=== PATIENT | male | born 1925 | race Caucasian/White ===

== ENCOUNTER 2017-03-25 15:38 | Emergency (ER) | payer OTHER ==
[~2017-03-25] VITALS: Ht 177.8 cm; Wt 107.7 kg
[~2017-03-25 15:38] MED LIST: ALIGN PO; CMD5 PO; FINA5TAB PO; FLM4 PO; FLNIN NAE; FRS/40 PO; LCTX PO; LEVO1TAB35 PO; LISI-461 PO; MRLP17 PO; POTA-335 PO; SENN-61 PO; SIMV10TA2 PO
[2017-03-25 15:50] VITALS: TEMP 36.6; Ht 177.8 cm; Wt 107.7 kg
[2017-03-25 16:43] VITALS: O2SAT 100
[2017-03-25 16:51] LABS: BASO % 0.3 %; BASO ABS # 0.02 K/uL (0-0.2); COMPLETE YES; EOS % 1.2 %; IG% 0.2 %; LYMPH % 10.4 %; LYMPH ABS # 0.69 K/uL (1.2-3.4); MEAN CORPUSCULAR HEMOGLOBIN 29.4 pg (25-34); MEAN PLATELET VOLUME 9.9 fL (7.4-10.4); MONO % 10.7 %; NEUT % 77.2 %; PLATELET COUNT 181 K/uL (130-400); RED BLOOD COUNT 3.37 M/uL (4.7-6.1); WHITE BLOOD COUNT 6.65 K/uL (4.8-10.8)
[2017-03-25 17:00] LABS: PARTIAL THROMBOPLASTIN RATIO 0.9; PROTHROMBIN TIME (PATIENT) 10.6 SECONDS (9.0-12.0)
[2017-03-25 17:05] LABS: MANUAL MICROSCOPIC REQUIRED? YES; REVIEW REQ? NO; SULFASALICYLIC ACID POS (NEG); URINE APPEARANCE TURBID (CLEAR); URINE COLOR RED
[2017-03-25 17:07] LABS: URINE BACTERIA 1+ (NEG); URINE RBC >30 /hpf (0-4)
[2017-03-25 17:10] LABS: ALT/SGPT 9 U/L (12-78); AST/SGOT 16 U/L (15-37); BLOOD UREA NITROGEN 35 mg/dl (7-18); BUN/CREATININE RATIO 23.3 (10-20); CALCIUM 8.6 mg/dl (8.5-10.1); CARBON DIOXIDE 26 mmol/L (21-32); CHLORIDE 107 mmol/L (98-107); GLUCOSE 88 mg/dl (70-99); POTASSIUM 4.7 mmol/L (3.5-5.1); SODIUM 140 mmol/L (136-145)
[2017-03-25 17:13] LABS: ALKALINE PHOSPHATASE 55 U/L (45-117)
[2017-03-25] MEDS ORDERED: ALEN70TA3 PO (17:31)
--- NOTE | 2017-03-25 17:38 | DIAGNOSTIC IMAGING REPORT ---
CT SCAN OF THE ABDOMEN AND PELVIS WITHOUT IV CONTRAST CLINICAL HISTORY: Hematuria. COMPARISON STUDY: No priors. TECHNIQUE: CT scan of the abdomen and pelvis is performed from the lung bases to the proximal femora. Images are reviewed in the axial, sagittal, and coronal planes. IV contrast was not administered for this examination as per the referring clinician. The examination is degraded by motion artifact, and by streak artifact from the patient's arms which could not be elevated above the abdomen. Automated dose control exposure was utilized. CT DOSE: 1527.46 mGy.cm FINDINGS: Lung bases: The heart is enlarged and without pericardial effusion. There are trace pleural effusions. Letter atelectasis versus scarring is present at both lung bases. No airspace consolidation is identified typical for pneumonia. Gynecomastia is noted. There is a tiny hiatal hernia. Liver: The unenhanced liver is normal in size, contour, and attenuation. There is no intrahepatic biliary ductal dilatation. Gallbladder: There are numerous calcified gallstones. There is no CT evidence of acute cholecystitis. Spleen: Normal in size and attenuation. Pancreas: There is moderate atrophy of the unenhanced pancreas which is grossly unremarkable. Adrenal glands: Unremarkable. Kidneys: The unenhanced kidneys are atrophic. There are no renal calculi identified. There there is a large mass lesion arising from the lower pole of the right kidney seen on axial image #120. This is difficult to discretely measure but extends at least 6 cm in maximum dimension and may be larger. This may invade the right renal pelvis. Foci of fat necrosis are suggested inferior to the right lower pole with peripheral calcifications. Abdominal vasculature: There is advanced atherosclerotic calcification of the abdominal aorta. An infrarenal abdominal aortic aneurysm measures 4.7 cm in AP diameter and 4.0 cm transverse diameter. The aneurysm sac extends 6 cm in craniocaudal length to the iliac bifurcation. Bowel: The small bowel and colon are normal in course and caliber. There are scattered colonic diverticula without CT evidence of acute diverticulitis. Mild colonic fecal retention is observed. The appendix is well-visualized and normal. Peritoneum: There is no intraperitoneal free air or abdominal ascites. Lymphadenopathy: There are numerous mildly enlarged retroperitoneal lymph nodes which measure up to 11 mm in short axis. Enlarged bilateral external iliac chain nodes are noted. The largest is on the right seen on image #328 and measures 3.7 x 1.7 cm. Enlarged right pelvic sidewall node on image #316 measures 2.8 x 1.4 cm. There is no inguinal lymphadenopathy. Pelvic viscera: The prostate gland is atrophic and contains coarse calcifications. The lobe hypertrophy is observed. The bladder wall is mildly thickened and trabeculated, and there is a small bladder diverticulum seen anteriorly. This suggests the sequelae of chronic outlet obstruction. There is a fat-containing right inguinal hernia. Skeletal structures: The skeletal structures are osteopenic. There is moderate lumbosacral spondylosis. Age there are age indeterminant compression deformities of L2, L3, and L5. No lytic or blastic lesions are seen. IMPRESSION: 1. There is a large heterogeneous mass lesion arising from the lower pole of the right kidney. This measures at least 6 cm in length and likely invades the right renal pelvis. This should be considered renal cell carcinoma until proven otherwise. Follow-up with a nonemergent contrast-enhanced examination is recommended for further assessment. 2. There are mildly enlarged retroperitoneal, as well as enlarged iliac chain and right pelvic sidewall lymph nodes. These are pathologically indeterminant and neoplasm is not excluded. 3. There is a 4.7 x 4.0 cm infrarenal abdominal aortic aneurysm. 4. Cholelithiasis. 5. Cardiomegaly and trace pleural effusions. 6. Additional findings as above. Electronically signed by: Isrrael Padgett M.D. 03/25/2017 5:37 PM Dictated Date/Time: 03/25/2017 5:26 PM
[2017-03-25 20:28] VITALS: BP 161/75; PULSE 82; O2SAT 97
--- NOTE | 2017-03-26 00:53 | EMERGENCY ROOM VISIT NOTE ---
History Report prepared by Arnoldo: Yoli Haas Under the Supervision of: Dr. Zain Long M.D. First contact with patient: 16:20 Chief Complaint: URINARY SYMPTOMS Stated Complaint: URINARY ISSUES Nursing Triage Summary: Patient arrives via BLS from [facility] with complaints of gross hematuria for the past week. Patient was seen at [facility] twice but patient requested to come to [facility] to get evaluated. Patient reports the nurse at [facility] consulted Dr. Cedeno from [place], but patient didn't want to travel to [place]. Patient denies pain, he stated "it graves when it feels like I pass a clot." History of Present Illness The patient is a 89 year old male who presents to the Emergency Room via BLS from [place] with complaints of persistent hematuria starting about a week ago. He reports some burning with urination. As per , the patient was evaluated twice at [facility] and he was placed on antibiotics without relief. [facility] had recommended a urologist evaluation at [place] but the patient did not want to go to [place]. He is not currently on any blood thinners. He currently denies any pain. Pt denies LOC, headache, fevers, chills, diaphoresis, visual changes, neck pain , chest pain, breathing difficulties, nausea, vomiting, abdominal pain, back pain, melena, hematochezia, numbness, weakness, lymphadenopathy, rash, or other complaints. Source of History: patient, spouse/significant other Onset: about a week ago Position: other (global) Symptom Intensity: No pain currently Quality: other (hematuria) Timing: other (persistent) Modifying Factors (Relieving): other (antibiotics without relief) Review of Systems See HPI for pertinent positives and negatives. A total of ten systems were reviewed and were otherwise negative. Past Medical & Surgical Medical Problems: (1) Cardiac arrest (2) Hypertension (3) Renal cell carcinoma Family History Cancer Diabetes mellitus Heart disease Social History Smoking Status: Former Smoker Marital Status: Housing Status: assisted living Occupation Status: retired Current/Historical Medications Scheduled Alendronate/Cholecalciferol (Fosamax+D 70MG/5600 Iu), 1 TABLET PO WK Aspirin (Aspirin Chewable), 81 MG PO QAM Carbidopa/Levodopa (Sinemet 25MG/100MG), 1 TAB PO TID Finasteride (Proscar), 5 MG PO QAM Furosemide (Lasix), 20 MG PO QAM Levothyroxine Sodium (Levothyroxine Sodium), 1 TAB PO DAILY Multiple Vitamin (Daily Nate), 1 TAB PO QAM Probiotic Product (Align), 1 CAP PO QAM Spironolactone (Aldactone), 25 MG PO QAM Allergies Coded Allergies: Ciprofloxacin (Unverified Allergy, Unknown, UNKNOWN, 03/25/17) Guaifenesin (Verified Allergy, Unknown, Unknown rxn, 03/25/17) Physical Exam Vital Signs Date Time Temp Pulse Resp B/P (MAP) Pulse Ox O2 Delivery O2 Flow Rate FiO2 03/25/17 20:28 82 18 161/75 97 Room Air 03/25/17 19:49 75 18 175/76 100 Room Air 03/25/17 18:40 76 18 164/92 100 Room Air 03/25/17 17:42 70 18 174/81 98 Room Air 03/25/17 16:56 70 03/25/17 16:43 100 Room Air 03/25/17 15:50 36.6 70 18 152/67 98 Room Air Physical Exam GENERAL: Awake, alert, well-appearing, in no distress HENT: Normocephalic, atraumatic. Oropharynx unremarkable. EYES: Pale conjunctiva. Sclera non-icteric. NECK: Supple. No nuchal rigidity. FROM. No JVD. RESPIRATORY: Clear to auscultation. CARDIAC: Regular rate, normal rhythm. Extremities warm and well perfused. Pulses equal. ABDOMEN: Soft, non-distended. No tenderness to palpation. No rebound or guarding. No masses. RECTAL: Deferred. MUSCULOSKELETAL: Chest examination reveals no tenderness. There is no CVA tenderness to palpation. No joint edema. LOWER EXTREMITIES: Calves are equal size bilaterally and non-tender. 1+ edema. No discoloration. NEURO: Normal sensorium. No sensory or motor deficits noted. SKIN: No rash or jaundice noted. Medical Decision & Procedures ER Provider Diagnostic Interpretation: CT: Radiology results as stated below per my review and radiologist interpretation CT SCAN OF THE ABDOMEN AND PELVIS WITHOUT IV CONTRAST CLINICAL HISTORY: Hematuria. COMPARISON STUDY: No priors. TECHNIQUE: CT scan of the abdomen and pelvis is performed from the lung bases to the proximal femora. Images are reviewed in the axial, sagittal, and coronal planes. IV contrast was not administered for this examination as per the referring clinician. The examination is degraded by motion artifact, and by streak artifact from the patient's arms which could not be elevated above the abdomen. Automated dose control exposure was utilized. CT DOSE: 1527.46 mGy.cm FINDINGS: Lung bases: The heart is enlarged and without pericardial effusion. There are trace pleural effusions. Letter atelectasis versus scarring is present at both lung bases. No airspace consolidation is identified typical for pneumonia. Gynecomastia is noted. There is a tiny hiatal hernia. Liver: The unenhanced liver is normal in size, contour, and attenuation. There is no intrahepatic biliary ductal dilatation. Gallbladder: There are numerous calcified gallstones. There is no CT evidence of acute cholecystitis. Spleen: Normal in size and attenuation. Pancreas: There is moderate atrophy of the unenhanced pancreas which is grossly unremarkable. Adrenal glands: Unremarkable. Kidneys: The unenhanced kidneys are atrophic. There are no renal calculi identified. There there is a large mass lesion arising from the lower pole of the right kidney seen on axial image #120. This is difficult to discretely measure but extends at least 6 cm in maximum dimension and may be larger. This may invade the right renal pelvis. Foci of fat necrosis are suggested inferior to the right lower pole with peripheral calcifications. Abdominal vasculature: There is advanced atherosclerotic calcification of the abdominal aorta. An infrarenal abdominal aortic aneurysm measures 4.7 cm in AP diameter and 4.0 cm transverse diameter. The aneurysm sac extends 6 cm in craniocaudal length to the iliac bifurcation. Bowel: The small bowel and colon are normal in course and caliber. There are scattered colonic diverticula without CT evidence of acute diverticulitis. Mild colonic fecal retention is observed. The appendix is well-visualized and normal. Peritoneum: There is no intraperitoneal free air or abdominal ascites. Lymphadenopathy: There are numerous mildly enlarged retroperitoneal lymph nodes which measure up to 11 mm in short axis. Enlarged bilateral external iliac chain nodes are noted. The largest is on the right seen on image #328 and measures 3.7 x 1.7 cm. Enlarged right pelvic sidewall node on image #316 measures 2.8 x 1.4 cm. There is no inguinal lymphadenopathy. Pelvic viscera: The prostate gland is atrophic and contains coarse calcifications. The lobe hypertrophy is observed. The bladder wall is mildly thickened and trabeculated, and there is a small bladder diverticulum seen anteriorly. This suggests the sequelae of chronic outlet obstruction. There is a fat-containing right inguinal hernia. Skeletal structures: The skeletal structures are osteopenic. There is moderate lumbosacral spondylosis. Age there are age indeterminant compression deformities of L2, L3, and L5. No lytic or blastic lesions are seen. IMPRESSION: 1. There is a large heterogeneous mass lesion arising from the lower pole of the right kidney. This measures at least 6 cm in length and likely invades the right renal pelvis. This should be considered renal cell carcinoma until proven otherwise. Follow-up with a nonemergent contrast-enhanced examination is recommended for further assessment. 2. There are mildly enlarged retroperitoneal, as well as enlarged iliac chain and right pelvic sidewall lymph nodes. These are pathologically indeterminant and neoplasm is not excluded. 3. There is a 4.7 x 4.0 cm infrarenal abdominal aortic aneurysm. 4. Cholelithiasis. 5. Cardiomegaly and trace pleural effusions. 6. Additional findings as above. Electronically signed by: Isrrael Padgett M.D. 03/25/2017 5:37 PM Dictated Date/Time: 03/25/2017 5:26 PM Laboratory Results 03/25/17 16:43 Red Blood Count 3.37, Mean Corpuscular Volume 89.0, Mean Corpuscular Hemoglobin 29.4, Mean Corpuscular Hemoglobin Concent 33.0, Mean Platelet Volume 9.9, Neutrophils (%) (Auto) 77.2, Lymphocytes (%) (Auto) 10.4, Monocytes (%) (Auto) 10.7, Eosinophils (%) (Auto) 1.2, Basophils (%) (Auto) 0.3, Neutrophils # (Auto ) 5.14, Lymphocytes # (Auto) 0.69, Monocytes # (Auto) 0.71, Eosinophils # (Auto ) 0.08, Basophils # (Auto) 0.02 03/25/17 16:43 Test 03/25/17 16:30 03/25/17 16:43 Urine Color RED Urine Appearance TURBID (CLEAR) Urine pH (4.5-7.5) Urine Specific [place] 1.010 (1.000-1.030) Urine Protein POS (NEG) Urine Glucose (UA) (NEG) Urine Ketones (NEG) Urine Occult Blood (NEG) Urine Nitrite (NEG) Urine Bilirubin (NEG) Urine Urobilinogen (NEG) Urine Leukocyte Esterase (NEG) Urine RBC >30 /hpf (0-4) Urine WBC 10-30 /hpf (0-5) Urine Epithelial Cells 5-10 /lpf (0-5) Urine Bacteria 1+ (NEG) White Blood Count 6.65 K/uL (4.8-10.8) Red Blood Count 3.37 M/uL (4.7-6.1) Hemoglobin 9.9 g/dL (14.0-18.0) Hematocrit 30.0 % (42-52) Mean Corpuscular Volume 89.0 fL (80-100) Mean Corpuscular Hemoglobin 29.4 pg (25-34) Mean Corpuscular Hemoglobin Concent 33.0 g/dl (32-36) Platelet Count 181 K/uL (130-400) Mean Platelet Volume 9.9 fL (7.4-10.4) Neutrophils (%) (Auto) 77.2 % Lymphocytes (%) (Auto) 10.4 % Monocytes (%) (Auto) 10.7 % Eosinophils (%) (Auto) 1.2 % Basophils (%) (Auto) 0.3 % Neutrophils # (Auto) 5.14 K/uL (1.4-6.5) Lymphocytes # (Auto) 0.69 K/uL (1.2-3.4) Monocytes # (Auto) 0.71 K/uL (0.11-0.59) Eosinophils # (Auto) 0.08 K/uL (0-0.5) Basophils # (Auto) 0.02 K/uL (0-0.2) RDW Standard Deviation 45.5 fL (36.4-46.3) RDW Coefficient of Variation 14.0 % (11.5-14.5) Immature Granulocyte % (Auto) 0.2 % Immature Granulocyte # (Auto) 0.01 K/uL (0.00-0.02) Prothrombin Time 10.6 SECONDS (9.0-12.0) Prothromb Time International Ratio 1.0 (0.9-1.1) Activated Partial Thromboplast Time 23.8 SECONDS (21.0-31.0) Partial Thromboplastin Ratio 0.9 Anion Gap 7.0 mmol/L (3-11) Est Creatinine Clear Calc Drug Dose 41.0 ml/min Estimated GFR () 47.2 Estimated GFR (Non- 40.7 BUN/Creatinine Ratio 23.3 (10-20) Calcium Level 8.6 mg/dl (8.5-10.1) Total Bilirubin 0.4 mg/dl (0.2-1) Direct Bilirubin < 0.1 mg/dl (0-0.2) Aspartate Amino Transf (AST/SGOT) 16 U/L (15-37) Alanine Aminotransferase (ALT/SGPT) 9 U/L (12-78) Alkaline Phosphatase 55 U/L (45-117) Total Protein 7.4 gm/dl (6.4-8.2) Albumin 3.2 gm/dl (3.4-5.0) Lipase 238 U/L (73-393) Laboratory results reviewed by ma ED Course 1620: The patient was evaluated in room A10. A complete history and physical exam was performed. Blood pressure screening: Patient was found to have an elevated blood pressure and was referred to their primary doctor for recheck and further treatment. Medication Reconciliation: I attest that I have personally reviewed the patient' s current medication list 1730: The patient had an abnormal urinalysis and hemoglobin of 9.6, creatinine 1.7, and a urine culture that showed less than 10,000 bacteria. 1925: I reevaluated the patient who is resting comfortably. 1949: I discussed the patient's case with Dr. Bergeron, urologist with [facility]. He recommended an outpatient follow up for renal cell carcinoma work up. 0: I reevaluated the patient. Discussed results and discharge instructions: He verbalized understanding and agreement. The patient is ready for discharge. Medical Decision Triage Nursing notes reviewed. The patient's presentation and history were concerning for hematuria. Etiologies such as renal colic, malignancy, UTI, from a sided pediatric, anemia , diverticulitis, mesenteric ischemia, aortic pathology, infections, inflammatory bowel disease, PUD, biliary pathology, as well as others were entertained. The patient was evaluated. He has a history of renal cell cancer. He has hematuria. There were no confirmed infections on culture done at the outside hospital. The patient underwent CT imaging and blood work. He has a mild anemia but this is stable. He has no leukocytosis. His kidney function is unremarkable. The patient has a renal mass and nodes on CT imaging. I discussed this with the patient and his . This is very concerning for a recurrence of his renal cell carcinoma. I did Discuss the case with Dr. Bergeron of urology. He and I discussed all the relevant information and he feels the patient needs close follow-up in the office. He will see the patient and asked for him to call the office on Tuesday. The patient and his feel comfortable with this plan. By the evaluation outlined above other emergent etiologies such as those listed in the differential, as well as others, were deemed relatively unlikely. All questions were answered and they were pleased with the treatment. Return instructions were outlined and the patient was discharged in stable condition. The patient was referred to [facility] urology and his primary for follow-up for a recheck of the current condition. The chart was completed utilizing [employer] Speech voice recognition software. Grammatical errors, random word insertions, pronoun errors, and incomplete sentences are an occasional consequence of this system due to software limitations, ambient noise, and hardware issues. Any formal questions or concerns about the content, text, or information contained within the body of this dictation should be directly addressed to the physician for clarification. Consults Time Called: 1939 Consulting Physician: Dr. Bergeron, urologist with [facility] Returned Call: 1949 I discussed the patient's case with Dr. Bergeron, urologist with [facility]. He recommended an outpatient follow up for renal cell carcinoma work up. Impression Primary Impression: Renal cell carcinoma Additional Impression: Hematuria Scribe Attestation The scribe's documentation has been prepared under my direction and personally reviewed by me in its entirety. I confirm that the note above accurately reflects all work, treatment, procedures, and medical decision making performed by me. Departure Information Dispostion Home / Self-Care Referrals Julio C Mclaughlin D.O. (PCP) Neel Bergeron M.D. Forms HOME CARE DOCUMENTATION FORM, IMPORTANT VISIT INFORMATION Patient Instructions My [facility] Additional Instructions Follow-up with Dr. Bergeron by calling the number below Tuesday about 8: 30 AM. Tell the corporate secretary he was made aware of your Emergency Room visit and kidney cancer. The office will be making arrangements for you to be seen and treated. Return to the ER for worsening bleeding issues, inability to urinate, abdominal pain, vomiting, fevers, severe back pain, or as needed. Continue current medications. Rest. No heavy lifting. Problem Qualifiers
[2017-04-07] MEDS ORDERED: CARB25TA12 PO (17:31)
[2017-04-07] MEDS ORDERED: FURO-85 PO (17:31)
[2017-04-07] MEDS ORDERED: FINA5TAB PO (17:31)
[2017-04-07] MEDS ORDERED: MISC4CAP PO (17:31)
[2017-04-07] MEDS ORDERED: SPIR25TA PO (17:31)
[2017-04-07] MEDS ORDERED: ASPCH81X PO (17:31)
[2017-04-07] MEDS ORDERED: LEVO50TA6 PO (17:31)
[2017-04-07] MEDS ORDERED: MULT-411 PO (17:31)
[2017-06-10] MEDS ORDERED: TAMS0.4C38 PO (10:06)
[2017-06-10] MEDS ORDERED: FLUT50SP45 (10:06)
[2017-06-10] MEDS ORDERED: CARB25TA12 PO (10:06)
== END 2017-03-25 20:30 | disposition home or self-care (01) ==
LOC: EDBD 15:38 → C.EDA 15:40
DX: C64.9 Malignant neoplasm of unspecified kidney, except renal pelvis (principal); R31.9 Hematuria, unspecified; I10 Essential (primary) hypertension; Z83.3 Family history of diabetes mellitus; Z82.49 Family history of ischemic heart disease and other diseases of the circulatory system; Z87.891 Personal history of nicotine dependence; Z79.82 Long term (current) use of aspirin; I71.4 Abdominal aortic aneurysm, without rupture

== ENCOUNTER → 2017-04-05 | Outpatient (CLI) | payer OTHER ==
[~2017-04-05] MED LIST changes: +ACET325T96 PO; +ALEN70TA3 PO; +ALEN70TA4 PO; -ALIGN PO; +AMOX500C3 PO; +ASPCH81X PO; +BISA10SU7 PR; +CARB25TA12 PO; -CMD5 PO; -FLM4 PO; -FLNIN NAE; +FLUT50SP45; -FRS/40 PO; +FURO-85 PO; -LCTX PO; -LEVO1TAB35 PO; +LEVO50TA6 PO; -LISI-461 PO; +MISC4CAP PO; -MRLP17 PO; +MULT-411 PO; +NTRGSL/4 UT; -POTA-335 PO; -SENN-61 PO; -SIMV10TA2 PO; +SODIENE PR; +SPIR25TA PO; +TAMS0.4C38 PO
[2017-04-05 15:11] LABS: ALT/SGPT 15 U/L (12-78); AST/SGOT 17 U/L (15-37); BLOOD UREA NITROGEN 38 mg/dl (7-18); CALCIUM 8.7 mg/dl (8.5-10.1); CARBON DIOXIDE 25 mmol/L (21-32); CHLORIDE 104 mmol/L (98-107); GLUCOSE 90 mg/dl (70-99); POTASSIUM 5.2 mmol/L (3.5-5.1); SODIUM 136 mmol/L (136-145)
[2017-04-05 15:14] LABS: ALB/GLOB RATIO 0.8 (0.9-2); ALKALINE PHOSPHATASE 58 U/L (45-117)
--- NOTE | 2017-04-05 15:49 | DIAGNOSTIC IMAGING REPORT ---
RENAL ULTRASOUND HISTORY: C64.9 Renal cell carcinoma RETROPERITONEAL COMPLETE TO R/O IVC TH COMPARISON: CT dated 03/25/2017 FINDINGS: Right kidney: Maximum dimension 9.8 cm. Poorly defined right renal mass but is in the patient's prior CT study. Renal veins are not well-defined Normal corticomedullary differentiation and cortical thickness. Left kidney: Maximum dimension 10.3 cm. No evidence hydronephrosis. The inferior vena cava appears patent. Partially obscured to overlying bowel content. Normal corticomedullary differentiation and cortical thickness. Bladder: No bladder wall thickening. The bilateral ureteral jets were identified. IMPRESSION: 1. Limited study due to patient body habitus as well as overlying bowel. 2. Poorly defined right renal mass 3. The renal veins are not diagnostically evaluated. 4. The inferior vena cava appears patent although it is not completely evaluated again due to overlying bowel content. Electronically signed by: Angel Kiser M.D. 04/05/2017 3:48 PM Dictated Date/Time: 04/05/2017 3:45 PM
== END | disposition home or self-care (01) ==
LOC: C.ULTR 14:18
PROVIDERS: ATTEND Urology
DX: C64.9 Malignant neoplasm of unspecified kidney, except renal pelvis (principal)

== ENCOUNTER 2017-04-07 17:46 | Emergency (ER) | payer OTHER ==
[~2017-04-07] VITALS: Ht 167.6 cm; Wt 98.0 kg
[~2017-04-07 17:46] MED LIST changes: -ACET325T96 PO; -ALEN70TA4 PO; -AMOX500C3 PO; -BISA10SU7 PR; -FLUT50SP45; -NTRGSL/4 UT; -SODIENE PR; -TAMS0.4C38 PO
[2017-04-07 17:56] VITALS: TEMP 36.7; Ht 167.6 cm; Wt 98.0 kg
[2017-04-07 19:41] LABS: ALT/SGPT 9 U/L (12-78); BLOOD UREA NITROGEN 44 mg/dl (7-18); BUN/CREATININE RATIO 25.9 (10-20); CALCIUM 8.8 mg/dl (8.5-10.1); CARBON DIOXIDE 25 mmol/L (21-32); CHLORIDE 105 mmol/L (98-107); GLUCOSE 98 mg/dl (70-99); SODIUM 137 mmol/L (136-145)
[2017-04-07 19:54] LABS: ALKALINE PHOSPHATASE 59 U/L (45-117)
[2017-04-07] MEDS ORDERED: ALEN70TA4 PO (19:56)
[2017-04-07 20:05] LABS: BASO % 0.3 %; BASO ABS # 0.02 K/uL (0-0.2); COMPLETE YES; EOS % 1.7 %; HEMATOCRIT 32.3 % (42-52); IG% 0.3 %; LYMPH % 9.5 %; LYMPH ABS # 0.57 K/uL (1.2-3.4); MEAN CELL VOLUME 88.3 fL (80-100); MEAN CORPUSCULAR HEMOGLOBIN 27.9 pg (25-34); MEAN CORPUSCULAR HGB CONC 31.6 g/dl (32-36); MEAN PLATELET VOLUME 10.2 fL (7.4-10.4); MONO % 10.1 %; NEUT % 78.1 %; PLATELET COUNT 168 K/uL (130-400); RED BLOOD COUNT 3.66 M/uL (4.7-6.1); WHITE BLOOD COUNT 6.03 K/uL (4.8-10.8)
[2017-04-07] MEDS ORDERED: SODIENE PR (20:06)
[2017-04-07] MEDS ORDERED: AMOX500C3 PO (20:06)
[2017-04-07] MEDS ORDERED: ACET325T96 PO (20:06)
[2017-04-07] MEDS ORDERED: BISA10SU7 PR (20:06)
[2017-04-07] MEDS ORDERED: NTRGSL/4 UT (20:06)
[2017-04-07 20:08] LABS: MANUAL MICROSCOPIC REQUIRED? YES; URINE APPEARANCE TURBID (CLEAR); URINE BILIRUBIN NEG (NEG); URINE COLOR RED; URINE NITRITE NEG (NEG); URINE PH 6.5 (4.5-7.5); URINE SPECIFIC GRAVITY 1.015 (1.000-1.030); UROBILINOGEN NEG (NEG)
[2017-04-07 20:09] LABS: REVIEW REQ? NO
[2017-04-07 20:15] LABS: PARTIAL THROMBOPLASTIN RATIO 0.9; PROTHROMBIN TIME (PATIENT) 10.4 SECONDS (9.0-12.0)
[2017-04-07 20:21] LABS: POTASSIUM 5.2 mmol/L (3.5-5.1)
[2017-04-07 20:22] LABS: URINE RBC >30 /hpf (0-4)
[2017-04-07 20:23] LABS: URINE BACTERIA 1+ (NEG)
--- NOTE | 2017-04-08 00:53 | EMERGENCY ROOM VISIT NOTE ---
History Report prepared by Arnoldo: Russell Mohan Under the Supervision of: Dr. Nasim Browne M.D. First contact with patient: 18:07 Chief Complaint: HEMATURIA Stated Complaint: HEMATURIA Nursing Triage Summary: Pt arrives by BLS from [facility] for c/o hematuria. reports was seen here last for the same. Had US on Tuesday, no results yet. Pt woke today, noticed blood in urine at 0900. Pt denies any pain. History of Present Illness The patient is an 89 year old male who presents to the Emergency Room with complaints of constant hematuria beginning this morning. The patient states that he went to the restroom this morning, and he passed a blood clot. He notes that he was seen in the hospital two weeks ago for similar symptoms. He reports that he was evaluated here and was told he had kidney cancer. The patient notes that his hematuria went away, and he followed up with urology two days ago. He reports that he had an ultrasound performed and does not know the results yet. The patient reports that he was sent here for evaluation by [facility]. He denies vomiting or fever. Source of History: patient Onset: this morning Position: other (bladder) Quality: other (hematuria) Timing: constant Associated Symptoms: No vomiting Review of Systems See HPI for pertinent positives & negatives. A total of 10 systems reviewed and were otherwise negative. Past Medical & Surgical Medical Problems: (1) Cardiac arrest (2) Hypertension (3) Renal cell carcinoma Family History Cancer Diabetes mellitus Heart disease Social History Smoking Status: Never Smoker Marital Status: Housing Status: assisted living Occupation Status: retired Current/Historical Medications Scheduled Alendronate Sodium (Fosamax), 70 MG PO WK Aspirin (Aspirin Chewable), 81 MG PO QAM Carbidopa/Levodopa (Sinemet 25MG/100MG), 1 TAB PO TID Finasteride (Proscar), 5 MG PO QAM Furosemide (Lasix), 20 MG PO QAM Levothyroxine Sodium (Levothyroxine Sodium), 50 MCG PO QAM Multiple Vitamin (Daily Nate), 1 TAB PO QAM Probiotic Product (Align), 4 MG PO QAM Spironolactone (Aldactone), 25 MG PO QAM Scheduled PRN Acetaminophen Tab (Tylenol), 650 MG PO Q4H PRN for Mild Pain Amoxicillin (Amoxil), 2,000 MG PO UD PRN for Before Dental Procedure Bisacodyl (Bisac-Evac), 10 MG MA UD PRN for Constipation Nitroglycerin (Nitrostat), 0.4 MG UT UD PRN for Chest Pain Sodium Phosphate/Biphosphate (Fleet Enema), 1 EA MA UD PRN for Constipation Allergies Coded Allergies: Ciprofloxacin (Unverified Allergy, Unknown, UNKNOWN, 03/25/17) Guaifenesin (Verified Allergy, Unknown, Unknown rxn, 03/25/17) Physical Exam Vital Signs Date Time Temp Pulse Resp B/P (MAP) Pulse Ox O2 Delivery O2 Flow Rate FiO2 04/07/17 23:00 78 20 128/65 96 Room Air 04/07/17 21:00 82 18 166/71 97 Room Air 04/07/17 19:25 75 20 170/68 96 Room Air 04/07/17 17:56 36.7 66 18 157/56 97 Room Air Physical Exam Constitutional: Vital signs reviewed. Eyes: Pupils are equal round reactive to light. Conjunctiva are noninjected. ENT: Pharynx is clear without erythema or exudate. Mucous membranes are moist. Neck supple without meningeal signs. Respiratory: Clear to auscultation bilaterally. Breath sounds are equal bilaterally. Cardiovascular: Regular rate and rhythm. No rubs or gallops. GI: Soft, nondistended and nontender. Bowel sounds are present. Musculoskeletal: No peripheral edema. No lower extremity tenderness. No CVA tenderness. Integumentary: No cyanosis. Neurological: The patient is awake and alert. No focal deficits. Psychiatric: Normal affect. Medical Decision & Procedures Laboratory Results 04/07/17 19:46 Red Blood Count 3.66, Mean Corpuscular Volume 88.3, Mean Corpuscular Hemoglobin 27.9, Mean Corpuscular Hemoglobin Concent 31.6, Mean Platelet Volume 10.2, Neutrophils (%) (Auto) 78.1, Lymphocytes (%) (Auto) 9.5, Monocytes (%) (Auto) 10.1, Eosinophils (%) (Auto) 1.7, Basophils (%) (Auto) 0.3, Neutrophils # (Auto ) 4.71, Lymphocytes # (Auto) 0.57, Monocytes # (Auto) 0.61, Eosinophils # (Auto ) 0.10, Basophils # (Auto) 0.02 6/15/17 19:02 04/07/17 19:46 Test 04/07/17 19:02 04/07/17 19:40 04/07/17 19:46 Anion Gap 7.0 mmol/L (3-11) Est Creatinine Clear Calc Drug Dose 32.3 ml/min Estimated GFR () 40.5 Estimated GFR (Non- 35.0 BUN/Creatinine Ratio 25.9 (10-20) Calcium Level 8.8 mg/dl (8.5-10.1) Total Bilirubin 0.5 mg/dl (0.2-1) Alanine Aminotransferase (ALT/SGPT) 9 U/L (12-78) Alkaline Phosphatase 59 U/L (45-117) Total Protein 7.9 gm/dl (6.4-8.2) Albumin 3.4 gm/dl (3.4-5.0) Lipase 614 U/L (73-393) Urine Color RED Urine Appearance TURBID (CLEAR) Urine pH 6.5 (4.5-7.5) Urine Specific [place] 1.015 (1.000-1.030) Urine Protein 3+ (NEG) Urine Glucose (UA) NEG (NEG) Urine Ketones NEG (NEG) Urine Occult Blood 3+ (NEG) Urine Nitrite NEG (NEG) Urine Bilirubin NEG (NEG) Urine Urobilinogen NEG (NEG) Urine Leukocyte Esterase NEG (NEG) Urine RBC >30 /hpf (0-4) Urine WBC 5-10 /hpf (0-5) Urine Epithelial Cells 20-30 /lpf (0-5) Urine Bacteria 1+ (NEG) White Blood Count 6.03 K/uL (4.8-10.8) Red Blood Count 3.66 M/uL (4.7-6.1) Hemoglobin 10.2 g/dL (14.0-18.0) Hematocrit 32.3 % (42-52) Mean Corpuscular Volume 88.3 fL (80-100) Mean Corpuscular Hemoglobin 27.9 pg (25-34) Mean Corpuscular Hemoglobin Concent 31.6 g/dl (32-36) Platelet Count 168 K/uL (130-400) Mean Platelet Volume 10.2 fL (7.4-10.4) Neutrophils (%) (Auto) 78.1 % Lymphocytes (%) (Auto) 9.5 % Monocytes (%) (Auto) 10.1 % Eosinophils (%) (Auto) 1.7 % Basophils (%) (Auto) 0.3 % Neutrophils # (Auto) 4.71 K/uL (1.4-6.5) Lymphocytes # (Auto) 0.57 K/uL (1.2-3.4) Monocytes # (Auto) 0.61 K/uL (0.11-0.59) Eosinophils # (Auto) 0.10 K/uL (0-0.5) Basophils # (Auto) 0.02 K/uL (0-0.2) RDW Standard Deviation 44.6 fL (36.4-46.3) RDW Coefficient of Variation 13.8 % (11.5-14.5) Immature Granulocyte % (Auto) 0.3 % Immature Granulocyte # (Auto) 0.02 K/uL (0.00-0.02) Prothrombin Time 10.4 SECONDS (9.0-12.0) Prothromb Time International Ratio 1.0 (0.9-1.1) Activated Partial Thromboplast Time 23.6 SECONDS (21.0-31.0) Partial Thromboplastin Ratio 0.9 Direct Bilirubin 0.1 mg/dl (0-0.2) Aspartate Amino Transf (AST/SGOT) 16 U/L (15-37) Laboratory results as reviewed by me. ED Course 1813: The patient was evaluated in room C12A. A complete history and physical exam was performed. 2042: I discussed the patient's case with Dr. Bergeron, Urology. He said there is no way to stop the bleeding acutely, and the patient should follow up with urology as an outpatient. 2051: I discussed the urology consult with the patient. He is currently trying to urinate, but he is having trouble. The nurse is going to do a bladder scan and insert a Fernández if needed. 2113: The patient had a bladder scan, and it showed 100cc of fluid. He was able to urinate about 100cc of pink urine. He is ready to go home. I discussed the treatment plan and he verbalized complete understanding. The patient will be discharged. Medical Decision This is a 89-year-old male with a history of renal cell carcinoma presenting with hematuria. I did perform a limited focused review of portions of the patient's old chart on the electronic medical record. The patient was here March 25 for hematuria that lasted a week. He was seen twice at another hospital that placed him on antibiotics. 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 His Hemoglobin was 9.9. Arrangements were made for him to follow up with Dr. Bergeron, Neurology. He had a renal US two days ago which showed a poorly defined right renal mass. Medication Reconciliation: I attest that I have personally reviewed the patient' s current medication list. Blood Pressure Screening: Patient was found to have an elevated blood pressure and was referred to their primary doctor for recheck and further treatment. I did evaluate the patient as noted above. The patient has a history of renal cell carcinoma and has intermittent hematuria for the past 3 weeks. It got worse today and he passed clots and so he was sent here. He otherwise has no complaints. He has no abdominal or back pain. He has no tenderness on examination. He is able to urinate although his urine is pink without clots. IV access was established. I did order and personally review the patient's urinalysis as described above. I did order and review the patient's blood work as noted in the electronic medical record. He is mildly anemic but his hemoglobin is actually improved from his previous visit. His creatinine is stable at 1.7 and his potassium is also stable at 5.2. I did discuss the test results with the patient. I did discuss case with Dr. Bergeron of urology who had spoken to Dr. Jef Monroe about the patient. He stated that the patient could be discharged home and that they would arrange for follow up with oncology. The patient was able to urinate here and had no signs of retention. He was advised to return should he develop decreased urinary output or inability urinate as well as any other concerning symptoms as listed below. He was discharged back in good condition. He was advised to have this potassium rechecked by his PCP early next week. Consults Time Called: 2032 Consulting Physician: Dr. Bergeron, Urology Returned Call: 2042 I discussed the patient's case with Dr. Bergeron, Urology. He said there is no way to stop the bleeding acutely, and the patient should follow up with urology as an outpatient. Impression Primary Impression: Hematuria Additional Impressions: Renal cell carcinoma Elevated serum creatinine Hyperkalemia Scribe Attestation The scribe's documentation has been prepared under my direct and personally reviewed by me in its entirety. I confirm that the note above accurately reflects all work, treatment, procedures, and medical decision making performed by me. Departure Information Dispostion Home / Self-Care Referrals Fidencio Maria M.D. (PCP) Forms HOME CARE DOCUMENTATION FORM, IMPORTANT VISIT INFORMATION, WORK / SCHOOL INSTRUCTIONS Patient Instructions Hyperkalemia Dc, My [facility] Additional Instructions You have been examined and treated today on an emergency basis only. This is not a substitute for, or an effort to provide, complete comprehensive medical care. It is impossible to recognize and treat all injuries or illnesses in a single emergency department visit. It is therefore important that you follow up closely with your physician and urologist. Call as soon as possible for an appointment. Return for worsening symptoms or if you develop fever, vomiting, abdominal pain, back pain, inability to urinate, significantly decreased urine or any other concerning symptoms. Have her doctor recheck your potassium which was slightly high today. Problem Qualifiers Additional Impressions: Renal cell carcinoma Laterality: right Qualified Codes: C64.1 - Malignant neoplasm of right kidney, except renal pelvis
[2017-04-08 01:29] VITALS: BP 141/63; PULSE 78; O2SAT 98
[2017-06-10] MEDS ORDERED: TAMS0.4C38 PO (10:06)
[2017-06-10] MEDS ORDERED: CARB25TA12 PO (10:06)
[2017-06-10] MEDS ORDERED: FLUT50SP45 (10:06)
== END 2017-04-08 01:31 | disposition home or self-care (01) ==
LOC: EDBD 17:46 → C.EDC 17:49
DX: R31.9 Hematuria, unspecified (principal); C64.1 Malignant neoplasm of right kidney, except renal pelvis; R79.89 Other specified abnormal findings of blood chemistry; E87.5 Hyperkalemia; I46.9 Cardiac arrest, cause unspecified; I10 Essential (primary) hypertension; Z83.3 Family history of diabetes mellitus; Z82.49 Family history of ischemic heart disease and other diseases of the circulatory system; Z79.82 Long term (current) use of aspirin